=== PATIENT | male | born 1950 | race Caucasian/White ===

== ENCOUNTER 2018-10-17 12:28 | Outpatient (CLI) | payer MEDICARE ==
--- NOTE | 2018-10-17 14:43 | CT Report ---
Reason: CHRISTOPHER DEPENDENT Procedure Date: 10/17/2018 Accession Number: [id number] / [id number] Procedure: CT - Chest/Lung Screen Low Dose W/O CPT Code: FULL RESULT: EXAM CT LUNG SCREEN EXAM DATE: 10/17/2018 01:30 PM. HISTORY: 68-year-old patient with [id number] smoking history. Currently smoking: No. The patient quit smoking in 2013. COMPARISON: None. TECHNIQUE: CT examination of the entire thorax without contrast was performed using low-dose technique. Thin section coronal, axial, sagittal and MIP axial images were obtained. In accordance with CT protocol optimization, one or more of the following dose reduction techniques were utilized for this exam: automated exposure control, adjustment of mA and/or KV based on patient size, or use of iterative reconstructive technique. FINDINGS: Nodules: Right upper lobe: None. Right middle lobe: None. Right lower lobe: None. Left upper lobe: None. Left lower lobe: None. Emphysema: Minimal. Pleura: Unremarkable. Aorta: Mild amount of calcifications. Mediastinum: Unremarkable. Coronary calcifications: None. Other pulmonary findings: There is subtle bronchiectasis, most pronounced in the lingula, where there is a small amount of atelectasis versus scarring, favor scarring. Similarly, the right middle lobe demonstrates mild bronchiectasis and scarring. The finding is mild in both the lingula and right middle lobe. Other extrapulmonary findings: None. IMPRESSION: LUNG-RADS ASSESSMENT CATEGORY: 1 - negative. Probability of malignancy: Less than 1%. RECOMMENDATION: Continue annual screening with low dose CT. [facility]
== END 2018-10-17 12:29 | disposition home or self-care (01) ==
LOC: DI 12:28
PROVIDERS: ATTEND Student in an Organized Health Care Education/Training Program
DX: Z12.2 Encounter for screening for malignant neoplasm of respiratory organs (principal); Z87.891 Personal history of nicotine dependence